=== PATIENT | female | born 1965 | race Caucasian/White ===

== ENCOUNTER → 2016-11-14 | Day surgery (SDC) | payer BC ==
[~2016-11-14] VITALS: Ht 172.7 cm; Wt 67.6 kg
[2016-11-14] VITALS (10 sets, daily range): BP systolic 121–143; BP diastolic 71–88
[~2016-11-14] MED LIST: Alfentanil 2ml Inj ONE; Atropine Inj 1mg/10ml Syr IV PRN; Bacitracin 50000 Units Vial ONE; Bacitracin Oint 15gm Tube TOPIC ONE; Betadine 4oz Bottle TOPIC ONE; Dexamethasone 4mg/ml vial ONE; DiphenhydrAMINE 50mg/ml Inj IVP PRN; Hydromorphone 0.5mg/0.5ml inj IVP PRN; Ketorolac 30mg Inj IV PRN; Ketorolac 60mg Inj IV PRN; LORazepam Inj 2mg/ml 1ml IV PRN; LR 1000ml 1,000 ML IVLG SCH; LR 1000ml ONE; Labetalol 5mg/ml 20ml vial IV PRN; Meperidine 25mg/ml Inj IV PRN; Metoclopramide 10mg/2ml Inj IVP PRN; Midazolam 2mg/2ml Inj IVP PRN; Midazolam 2mg/2ml Inj ONE; NS Irrig 1000ml ONE; Norco 5mg/325mg tab ORAL PRN; Norco 7.5mg/325mg tab ORAL PRN; Oxycodone/Acetaminophen 5-325 ORAL PRN; Propofol 10mg/ml 20ml IV ONE; Sterile Water Irrig 1000ml IRRIG ONE; Succinylcholine 20mg/ml 10ml vial ONE; fentaNYL 100 mcg/2 mL IV PRN
[2016-11-14 15:42] LABS: EOSINOPHILS % (AUTO) 2.2 % (0.0-3.0); LYMPHOCYTES % (AUTO) 28.1 % (20.0-45.0); MEAN CORPUSCULAR HEMOGLOBIN 31.8 PG (27.0-31.0); MEAN CORPUSCULAR HGB CONC 33.6 G/DL (32.0-36.0); MEAN CORPUSCULAR VOLUME 95 FL (80-99); MEAN PLATELET VOLUME 6.4 FL (6.5-10.1); MONOCYTES % (AUTO) 8.1 % (1.0-10.0); NEUTROPHILS % (AUTO) 60.6 % (45.0-75.0); PLATELET COUNT 268 K/UL (150-450); RED BLOOD COUNT 3.96 M/UL (4.20-5.40); RED CELL DISTRIBUTION WIDTH 11.5 % (11.6-14.8)
[2016-11-14 15:59] LABS: PROTHROMBIN TIME 10.2 SEC (9.30-11.50)
[2016-11-14 16:03] LABS: ANION GAP 16 (5-15); CALCIUM 9.4 mg/dL (8.6-10.2); CARBON DIOXIDE 27 mEQ/L (20-30); CHLORIDE 98 mEQ/L (98-107); CREATININE 0.7 mg/dL (0.5-0.9); GLOMERULAR FILTRATION RATE > 60 mL/min (>60); HEMOLYSIS 4; POTASSIUM 3.8 mEQ/L (3.4-4.9); SODIUM 141 mEQ/L (135-145)
--- NOTE | 2016-11-14 16:25 | Pre-Procedure Note/Attestation ---
Pre-Procedure Note/Attestation Complete Prior to Procedure Planned Procedure: right Procedure Narrative: Right breast wound debridement, washout, and revision with wound closure Indications for Procedure Pre-Operative Diagnosis: Right breast wound deheisence with profuse fluid drainage today. She is status post right breast mastecotmy with reconstruction using alloderm and tissue expanders Attestation I attest that I discussed the nature of the procedure; its benefits; risks and complications; and alternatives (and the risks and benefits of such alternatives ), prior to the procedure, with the patient (or the patient's legal transportation services representative). I attest that, if there was a reasonable possibility of needing a blood transfusion, the patient (or the patient's legal transportation services representative) was given the [place] Department [employer] standardized written summary, pursuant to the [place] Blood Safety Act ([place] Health and Safety Code # 1645, as amended). I attest that I re-evaluated the patient just prior to the surgery and that there has been no change in the patient's H&P, except as documented below: NATA CHÁVEZ M.D. Nov 14, 2016 16:25
--- NOTE | 2016-11-14 16:34 | History & Physical ---
History and Physical History & Physicial Pina is approximately 1 month status post right breast mastectomy and immediate recosntruction with tissue expanders and alloderm. Post-operatively, she had mild skin necrosis along the inferior pole suture line. This was managed conservatively and was healing. Today, she called and reported that the right breast wound scab fell off and had a profuse drainage of dark fluid from the right breast. She was subsequently instructed to come to the ER at [facility] for evaluation, and would likely need wound debridment, washout and revision with closure. Review of Systems Constitutional: Denies: chills, fever, malaise, no symptoms, other, see HPI, sweats, weakness Eye: Denies: acuity changes, blurred vision, cataract, discharge, double vision , eye pain, glaucoma, no symptoms, other, see HPI, tearing ENT: Denies: chewing difficulty, ear discharge, ear pain, hearing loss, mouth pain, nasal discharge, no symptoms, nose congestion, nose pain, other, see HPI, swallowing difficulty, throat pain, throat swelling Respiratory: Denies: RODARTE/SOB, PNA, TB exposure, cough, hemoptysis, no symptoms , orthopnea, other, see HPI, shortness of breath, sputum, stridor, wheezing Cardiovascular: Denies: CHF, PND, arrythmia, chest pain, edema, hx TN, no symptoms, other, palpitations, see HPI, syncope Gastrointestinal/Abdominal: Denies: abdominal pain, constipation, diarrhea, hematemesis, hepatitis, hx colonoscopy, hx endoscopy, incontinence, liver disease, melena/BRBPR, nausea, no symptoms, other, see HPI, vomiting Genitourinary: Denies: UTI, change in appetite, discharge, dribbling, dysuria, frequency, hematuria, hesitancy, incontinence, no symptoms, nocturia, other, pain, prostate problems, retention, see HPI, urgency, weight change Musculoskeletal: Denies: Fx, back pain, gout, joint pain, joint swelling, muscle pain, muscle stiffness, no symptoms, other, see HPI Skin: Reports: change in color, change in hair/nails, dryness, itchiness, lesions, no symptoms, other - RIght breast wound scab fell off and started having profuse watery drainage from the wound today, rash, see HPI, ulcer/ breakdown Mood/Memory(PENDING): Denies: anxiety, depressed feelings, emotional problems, no symptoms, other, prior hx, see HPI Psychiatric: Denies: HI, SI, hallucinations, no symptoms, other, see HPI Neurologic: Denies: balance/gait, connects points, dizziness, fall, focal weakness, head trauma, headache, no symptoms, numbness, other, paresthesia, see HPI, seizure, slurred speech, stroke/TIA, syncope, tingling, tremors, weakness Endocrine: Denies: excessive sweating, flushing, increased thirst, increased urine, intolerance to temperature, no symptoms, other, see HPI, unexplained weight loss Hematologic/Lymphatic: Denies: anemia, blood clots, diathesis, easy bleeding, easy bruising, no symptoms, other, see HPI, swollen glands Gynecologic: Denies: hysterectomy, menopause, no symptoms, other, pap smear, hx, see HPI, vaginal bleeding, vaginal d/c Breasts: Reports: biopsies, mammogram, mass, nipple d/c, no symptoms, other - right breast wound with necrotic scab that fell off today and developed profuse drainage., see HPI, tenderness Sleep: Denies: doesn't sleep well, leg twiching/cramping, naps, no symptoms, other, see HPI, sleep aid, sleep study, sleeps well, snoring/irregular breathing All Other Systems: negative except mentioned in HPI Physical Exam Vital Signs Date Time Temp Pulse Resp B/P Pulse Ox O2 Delivery O2 Flow Rate FiO2 11/14/16 14:45 98.1 83 16 121/71 100 Room Air Assessment/Plan Assessment/Plan Pina has a right breast necrotic wound deheisence without any sign of infeciton. Developed drainage form the wound after the scab fell off today. She requires wound debridment, washout, revision with closure. This needs to be performed urgently to close the wound and protect the tissue guest specialist before it gets compromised. This will be performed under sterile conditions in the operating room. She understands the plan and agrees. NATA CHÁVEZ M.D. Nov 14, 2016 16:34
--- NOTE | 2016-11-14 16:34 | Anethesia Preoperative Eval ---
Anesthesia Pre-op PMH/ROS General Date of Evaluation: Nov 14, 2016 Time of Evaluation: 16:46 Anesthesiologist: Cipriano ASA Score: ASA 3 Mallampati Score Class I : Soft palate, uvula, fauces, pillars visible Class II: Soft palate, uvula, fauces visible Class III: Soft palate, base of uvula visible Class IV: Only hard plate visible Mallampati Classification: Class II Surgeon: Dayron Diagnosis: R Breast Infection Surgical Procedure: I and D R Breast Anesthesia History: none Family History: no anesthesia problems Allergies: Coded Allergies: No Known Allergies (Unverified , 11/14/16) Medications: see eMAR Past Medical History Cardiovascular: Reports: HTN Hematology/Immune: Reports: other - Breast CA PSxH Narrative: Breast Reconstruction Bilateral, Appendectomy Anesthesia Pre-op Phys. Exam Physician Exam Last Vital Signs Date Time Temp Pulse Resp B/P Pulse Ox O2 Delivery O2 Flow Rate FiO2 11/14/16 14:59 98.1 83 16 121/71 100 Room Air Constitutional: NAD Neurologic: CN 2-12 intact Cardiovascular: RRR Respiratory: CTA Gastrointestinal: S/NT/ND Airway Exam Mallampati Score: Class II MO: full ROM: full Teeth: intact Anesthesia Pre-op A/P Labs Hematology Test 11/14/16 15:10 White Blood Count 7.0 K/UL (4.8-10.8) Red Blood Count 3.96 M/UL (4.20-5.40) L Hemoglobin 12.6 G/DL (12.0-16.0) Hematocrit 37.6 % (37.0-47.0) Mean Corpuscular Volume 95 FL (80-99) Mean Corpuscular Hemoglobin 31.8 PG (27.0-31.0) H Mean Corpuscular Hemoglobin Concent 33.6 G/DL (32.0-36.0) Red Cell Distribution Width 11.5 % (11.6-14.8) L Platelet Count 268 K/UL (150-450) Mean Platelet Volume 6.4 FL (6.5-10.1) L Neutrophils (%) (Auto) 60.6 % (45.0-75.0) Lymphocytes (%) (Auto) 28.1 % (20.0-45.0) Monocytes (%) (Auto) 8.1 % (1.0-10.0) Eosinophils (%) (Auto) 2.2 % (0.0-3.0) Basophils (%) (Auto) 1.0 % (0.0-2.0) Coagulation Test 11/14/16 15:10 Prothrombin Time 10.2 SEC (9.30-11.50) Prothromb Time International Ratio 1.0 (0.9-1.1) Activated Partial Thromboplast Time 27 SEC (23-33) Chemistry Test 11/14/16 15:10 Sodium Level 141 mEQ/L (135-145) Potassium Level 3.8 mEQ/L (3.4-4.9) Chloride Level 98 mEQ/L (98-107) Carbon Dioxide Level 27 mEQ/L (20-30) Anion Gap 16 (5-15) H Blood Urea Nitrogen 13 mg/dL (7-23) Creatinine 0.7 mg/dL (0.5-0.9) Estimat Glomerular Filtration Rate > 60 mL/min (>60) Glucose Level 98 mg/dL (74-106) Calcium Level 9.4 mg/dL (8.6-10.2) Risk Assessment & Plan Assessment: ASA 3E Plan: GA, BIS Status Change Before Surgery: No Pre-Antibiotics Dru Gram Ancef IV Given Within 1 Hr of Incision: Yes Time Given: 17:01 Frankie Cota MD Nov 14, 2016 16:33
--- NOTE | 2016-11-14 16:35 | 48 Hour Post Anesthesia Eval ---
Post Anesthesia Evaluation Procedure: R Breast I and D Date of Evaluation: Nov 14, 2016 Time of Evaluation: 20:13 Blood Pressure Systolic: 138 0: 76 Pulse Rate: 62 Respiratory Rate: 18 Temperature (Fahrenheit): 98.2 O2 Sat by Pulse Oximetry: 100 Airway: patent Nausea: No Vomiting: No Pain Intensity: 2 Hydration Status: adequate Cardiopulmonary Status: Stable Mental Status/LOC: patient returned to baseline Follow-up Care/Observations: 0 Post-Anesthesia Complications: 0 Follow-up care needed: N/A Frankie Cota MD Nov 14, 2016 16:35
--- NOTE | 2016-11-14 16:35 | Immediate Post-Op Evaluation ---
Immediate Post-Op Evalulation Immediate Post-Op Evalulation Procedure: R Breast I and D Date of Evaluation: Nov 14, 2016 Time of Evaluation: 18:01 IV Fluids: 500 LR Blood Products: 0 Estimated Blood Loss: 5 Urinary Output: 0 Blood Pressure Systolic: 140 Blood Pressure Diastolic: 85 Pulse Rate: 61 Respiratory Rate: 16 O2 Sat by Pulse Oximetry: 100 Temperature (Fahrenheit): 97 Pain Score (1-10): 2 Nausea: No Vomiting: No Complications 0 Patient Status: awake, reacts, patent, extubated, none Hydration Status: adequate Dru Gram Ancef IV Given Within 1 Hr of Incision: Yes Time Given: 17:01 Frankie Cota MD Nov 14, 2016 16:34
--- NOTE | 2016-11-14 17:51 | Brief Operative Note ---
Immediate Post Operative Note Operative Note Pre-op Diagnosis: Right breast wound deheisence with profuse fluid drainage today. She is status post right breast mastecotmy with reconstruction using alloderm and tissue expanders Procedure: right breast wound debridement, washout, and revision with wound closure. Post-op Diagnosis: same as pre-op Findings: consistent w/pre-op dx studies Surgeon: Nata Chávez Union Laborer: None Anesthesia: general Specimen: none Complications: none Condition: stable Estimated Blood Loss: minimal Drains: none Implant(s) used?: No NATA CHÁVEZ M.D. Nov 14, 2016 17:51
--- NOTE | 2016-11-15 11:09 | Emergency Room Report ---
History of Present Illness General Chief Complaint: Wound Recheck/Suture Removal Source: Patient Present Illness [facility] The pt is a 51 yo F presenting for R breast drainage s/p mastectomy and reconstruction one month prior. The pt states she had a scab over the sutures which fell off and she noticed dark fluid draining from the wound. The pt contacted Dr. Padgett who asked her to go the ED and have urgent debridement of the wound as a [id number] case. The pt states she is experiencing a 2/10 dull ache to the R lower breast. Pt denies radiation of pain, N, V, F, chills, rash, SOB, CP, myalgia Allergies: Coded Allergies: No Known Allergies (Unverified , 11/14/16) Patient History Past Medical History: see triage record Last Menstrual Period: 10/17/16 Now: No Reviewed Nursing Documentation: PMH: Agreed, PSxH: Agreed Nursing Documentation-PMH Past Medical History: No History, Except For Review of Systems All Other Systems: negative except mentioned in HPI Physical Exam Vital Signs Date Time Temp Pulse Resp B/P Pulse Ox O2 Delivery O2 Flow Rate FiO2 11/14/16 14:45 98.1 83 16 121/71 100 Room Air 11/14/16 17:49 8.0 Sp02 EP Interpretation: reviewed, normal General Appearance: no apparent distress, alert, GCS 15, non-toxic Head: normocephalic, atraumatic Eyes: bilateral eye PERRL, bilateral eye normal inspection ENT: hearing grossly normal, normal pharynx, no angioedema, normal voice Neck: full range of motion, supple/symm/no masses Respiratory: chest non-tender, lungs clear, normal breath sounds, speaking full sentences Cardiovascular #1: regular rate, rhythm, no edema Cardiovascular #2: 2+ carotid (R), 2+ carotid (L), 2+ radial (R), 2+ radial (L) , 2+ dorsalis pedis (R), 2+ dorsalis pedis (L) Gastrointestinal: normal bowel sounds, non tender, soft, non-distended, no guarding, no rebound Rectal: deferred Genitourinary: normal inspection, no CVA tenderness Musculoskeletal: back normal, gait/station normal, normal range of motion, non- tender Neurologic: alert, oriented x3, responsive, motor strength/tone normal, sensory intact, speech normal Psychiatric: judgement/insight normal, memory normal, mood/affect normal, no suicidal/homicidal ideation Reflexes: 3+ bicep (R), 3+ bicep (L), 3+ tricep (R), 3+ tricep (L), 3+ knee (R) , 3+ knee (L) Skin: warm/dry, well hydrated, other - R breast: inferior breast at incision site clear drainage with some surrounding erythema Lymphatic: no adenopathy Medical Decision Making PA Attestation Dr. Camp is my supervising physician. Patient management was discussed with my supervising physician Diagnostic Impression: Primary Impression: Encounter for wound re-check Additional Impression: Postoperative infection of breast incision ER Course The pt is a 51 yo F presenting for R breast drainage s/p mastectomy and reconstruction one month prior. DDx: cellulitis, abscess, necrosis, mastitis PE: Vitals WNL. Afebrile. NAD RRR. Lungs CTA bilat. R breast: inferior breast at incision site clear drainage with some surrounding erythema Otherwise unremarkable. EKG, CXR, and pre-op labs all unremarkable. Dr. Padgett has arrived and has seen the patient. The pt will be admitted for same day surgery. Pt in stable condition. Laboratory Tests Test 11/14/16 15:10 White Blood Count 7.0 K/UL (4.8-10.8) Red Blood Count 3.96 M/UL (4.20-5.40) L Hemoglobin 12.6 G/DL (12.0-16.0) Hematocrit 37.6 % (37.0-47.0) Mean Corpuscular Volume 95 FL (80-99) Mean Corpuscular Hemoglobin 31.8 PG (27.0-31.0) H Mean Corpuscular Hemoglobin Concent 33.6 G/DL (32.0-36.0) Red Cell Distribution Width 11.5 % (11.6-14.8) L Platelet Count 268 K/UL (150-450) Mean Platelet Volume 6.4 FL (6.5-10.1) L Neutrophils (%) (Auto) 60.6 % (45.0-75.0) Lymphocytes (%) (Auto) 28.1 % (20.0-45.0) Monocytes (%) (Auto) 8.1 % (1.0-10.0) Eosinophils (%) (Auto) 2.2 % (0.0-3.0) Basophils (%) (Auto) 1.0 % (0.0-2.0) Prothrombin Time 10.2 SEC (9.30-11.50) Prothrombin Time INR 1.0 (0.9-1.1) PTT 27 SEC (23-33) Sodium Level 141 mEQ/L (135-145) Potassium Level 3.8 mEQ/L (3.4-4.9) Chloride Level 98 mEQ/L (98-107) Carbon Dioxide Level 27 mEQ/L (20-30) Anion Gap 16 (5-15) H Blood Urea Nitrogen 13 mg/dL (7-23) Creatinine 0.7 mg/dL (0.5-0.9) Estimate Glomerular Filtration Rate > 60 mL/min (>60) Glucose Level 98 mg/dL (74-106) Calcium Level 9.4 mg/dL (8.6-10.2) Human Chorionic Gonadotropin, Qual Negative Lab Results Impression CBC unremarkable. No anemia, no leukocytosis, no left shift. BMP unremarkable. PT, PTT WNL. Neg preg EKG Diagnostic Results Rate: normal Rhythm: NSR ST Segments: no acute changes ASA given to the pt in ED: No PA Scribe Text EKG reviewed with my SP shows no acute findings Chest X-Ray Diagnostic Results EP Interpretation: Yes Findings: no consolidation, no effusion, no pneumothorax Number of Views: 1 PA Scribe Text I'm acting as scribe for my supervising physician. My supervising physician's interpretation of the CXR is that there are no acute findings Last Vital Signs Date Time Temp Pulse Resp B/P Pulse Ox O2 Delivery O2 Flow Rate FiO2 11/14/16 18:55 98.6 63 20 139/88 100 Room Air 11/14/16 18:15 8.0 Status: improved Disposition: ADMITTED INPATIENT Condition: Stable Referrals: NON PHYSICIAN (PCP) EDITA ELIZABETH Nov 15, 2016 11:09
--- NOTE | 2016-11-17 18:01 | Cardiology Report ---
APPROVED REPORT EKG Measurement Heart [id number] Normal sinus rhythm Possible Left atrial enlargement Low voltage QRS Borderline ECG
--- NOTE | 2016-11-20 21:48 | Operative Note - Dictated ---
DATE OF OPERATION: 11/14/2016 PREOPERATIVE DIAGNOSIS: Right breast wound with wound dehiscence. POSTOPERATIVE DIAGNOSIS: Right breast wound with wound dehiscence. PROCEDURES: Right breast wound debridement, exploration, washout, revision of reconstructed breast with closure of the debrided wound. SURGEON: Dakota Padgett M.D. DANDY TENDER: None. ANESTHESIA: General anesthesia. COMPLICATIONS: None. FINDINGS: During this procedure is necrotic incision line with dehiscence of reconstruction suture line with exposed AlloDerm underneath but no tissue motor man exposure, both draining pus with only minor seroma fluid, necrotic wound edges that was full thickness. COMPLICATIONS: None. DRAINS: None. ESTIMATED BLOOD LOSS: Minimal. OPERATIVE PROCEDURE NOTE IN DETAIL: The patient was brought into the operating room, prepped and draped in usual sterile fashion after general anesthesia was induced. The previous right breast reconstruction suture line and scar line was completely excised using number [id number] scalpel. Full-thickness excision was made until healthy viable tissue was obtained along the wound edges. The skin flaps were raised up off of the AlloDerm. The entire area was explored. Tissue motor man was not exposed underneath the AlloDerm. No evidence of infection. Alloderm was not yet well integrated. Entire cavity was then subsequently irrigated using copious amounts of normal saline with triple antibiotics and dilute Betadine. Irrigation solution was suctioned out. Incisions were made in the skin flaps and the debrided wound was then closed by rotating and advancing mastectomy flaps to close the defect. Closure was performed in layers using 2-0 Vicryl interrupted deep dermal and subcutaneous sutures and then 3-0 Monocryl superficial dermal closure and then the skin was closed using 3-0 Monocryl running subcuticular suture. Antibiotic ointment and Telfa gauze was applied over the suture line and ABD pad and gauze and surgical ball was placed. At the end of the case, the patient tolerated the procedure well without any problems. The patient was extubated in the operating room, transferred to the postanesthesia care unit in good stable condition. Dakota Padgett M.D. DR: Shasha JOB#: [id number] CC: [id number]
--- NOTE | 2016-11-24 11:56 | Diagnostic Imaging Report ---
Indication: Chest Pain Comparison: None A single view chest radiograph was obtained. Findings: Cardiomediastinal appearance is within normal limits for age. Pulmonary vascularity is appropriate. The diaphragmatic contour is smooth and costophrenic angles are sharp. No pleural effusions are identified. The bones are unremarkable. There is an implanted device projected over the breasts bilaterally. These may be breast expanders. Impression: No acute findings
== END | disposition home or self-care (01) ==
LOC: EMR 15:00 → SDS 16:30
DX: T81.31XA Disruption of external operation (surgical) wound, not elsewhere classified, initial encounter (principal); Y83.8 Other surgical procedures as the cause of abnormal reaction of the patient, or of later complication, without mention of misadventure at the time of the procedure; Y92.009 Unspecified place in unspecified non-institutional (private) residence as the place of occurrence of the external cause; I10 Essential (primary) hypertension; Z90.11 Acquired absence of right breast and nipple; Z90.49 Acquired absence of other specified parts of digestive tract
CPT/HCPCS: 13160; 36415; 71010; 80048; 84703; 85025; 85610; 85730; 86850; 86900; 86901; 93005; 99285; J0330; J0690; J1100; J2250; J2405; J2704; J3490; J7120; 94003; 94150; A4246